=== PATIENT | male | born 1955 | race African-American/Black ===

== ENCOUNTER 2024-11-15 08:57 | Inpatient (IN) | payer MEDICARE ==
[~2024-11-15] VITALS: Ht 175.3 cm; Wt 99.8 kg
[~2024-11-15 08:57] MED LIST: AMLODIPINE BESYL5 MG PO; ATORVASTATIN CA20 MG PO; BREZTRI AEROS10.7 GM INH; DICYCLOMINE HCL20 MG PO; FLOMAX0.4 MG PO; LISINOPRIL-HCT1 EACH PO; OMEPRAZOLE40 MG PO; VENTOLIN HFA18 GM INH
[2024-11-15] MEDS: LACTATED RINGER'S 1,000 ML ONE (09:33)
[2024-11-15] MEDS: PIPERACILLIN/TAZOBACTAM 3.375 GM VIAL ONE (09:34)
[2024-11-15] MEDS: GENTAMICIN 80MG/NS 100 ML 200 ML IV ONE (09:34)
[2024-11-15] MEDS: CLINDAMYCIN 600MG / 50ML 50 ML IV ONE (09:35)
[2024-11-15 09:53] LABS: BASOPHILS % 0.9 % (0.0-1.0); EOSINOPHILS # (AUTO) 0.3 (0.0-0.4); HEMATOCRIT 44.5 % (38.2-49.6); HEMOGLOBIN 13.9 g/dL (14.0-18.0); LYMPHOCYTES # (AUTO) 1.6 (1.0-3.2); LYMPHOCYTES % 35.5 % (18.0-39.1); MEAN CORPUSCULAR HEMOGLOBIN 27.2 pg (28-32); MEAN CORPUSCULAR HGB CONC 31.2 g/dL (31-35); MEAN CORPUSCULAR VOLUME 87.1 fL (81-99); MONOCYTES # (AUTO) 0.6 (0.2-0.8); MONOCYTES % 12.9 % (4.4-11.3); NEUTROPHILS % 44.5 % (38.7-80.0); PLATELET COUNT 199 x10e3/uL (140-360); RED BLOOD COUNT 5.11 x10e6/uL (4.3-5.7); RED CELL DISTRIBUTION WIDTH 15.6 % (11.7-14.4); WHITE BLOOD COUNT 4.51 x10e3/uL (4.8-10.8)
[2024-11-15] MEDS ORDERED: DEXAMETHASONE SOD PHOS INJ 4 MG/ML SDV ONE (10:14)
[2024-11-15] MEDS ORDERED: PROPOFOL IV EMULSION 10 MG/ML 20 ML VIAL ONE ×3 (10:14→14:08)
[2024-11-15] MEDS ORDERED: SEVOFLURANE INHAL SOLN 250 ML PEN BTL ONE (10:14)
[2024-11-15] MEDS ORDERED: ACETAMINOPHEN 1000 MG/100 ML 100 ML IV ONE (10:14)
[2024-11-15] MEDS ORDERED: LIDOCAINE HCL 2% LOCAL INJ 5 ML SDV VIAL INJ ONE (10:14)
[2024-11-15] MEDS ORDERED: ONDANSETRON HCL INJ 2MG/ML 2ML 2 MG/ML VIAL ONE (10:14)
[2024-11-15] MEDS ORDERED: FENTANYL CITRATE/PF 100MCG/2 ML INJ ONE ×3 (10:16→15:17)
[2024-11-15 10:23] LABS: ANION GAP 13.9 mmol/L (8-16); CALCIUM 9.5 mg/dL (8.4-10.2); CREATININE, SERUM 1.02 mg/dL (0.72-1.25); POTASSIUM 3.9 mmol/L (3.5-5.1)
[2024-11-15] MEDS ORDERED: EPHEDRINE SULFATE INJ 50 MG/ML VIAL ONE (12:43)
[2024-11-15] MEDS ORDERED: PHENYLEPHRINE HCL 1% 10 MG/ML VIAL ONE (14:28)
[2024-11-15] MEDS ORDERED: DIPHENHYDRAMINE HCL 25 MG CAP PO PRN (16:30)
[2024-11-15 17:14] LABS: BASOPHILS % 0.3 % (0.0-1.0); EOSINOPHILS # (AUTO) 0.1 (0.0-0.4); EOSINOPHILS % 1.1 % (0.0-6.0); HEMATOCRIT 44.3 % (38.2-49.6); HEMOGLOBIN 13.2 g/dL (14.0-18.0); LYMPHOCYTES # (AUTO) 1.3 (1.0-3.2); LYMPHOCYTES % 19.2 % (18.0-39.1); MEAN CORPUSCULAR HEMOGLOBIN 26.6 pg (28-32); MEAN CORPUSCULAR HGB CONC 29.8 g/dL (31-35); MEAN CORPUSCULAR VOLUME 89.3 fL (81-99); MONOCYTES # (AUTO) 0.2 (0.2-0.8); NEUTROPHILS # (AUTO) 5.1 (2.1-6.9); NEUTROPHILS % 76.1 % (38.7-80.0); PLATELET COUNT 192 x10e3/uL (140-360); RED BLOOD COUNT 4.96 x10e6/uL (4.3-5.7); RED CELL DISTRIBUTION WIDTH 15.7 % (11.7-14.4); WHITE BLOOD COUNT 6.63 x10e3/uL (4.8-10.8)
[2024-11-15 17:35] LABS: ANION GAP 14.4 mmol/L (8-16); CALCIUM 8.9 mg/dL (8.4-10.2); CREATININE, SERUM 1.37 mg/dL (0.72-1.25); POTASSIUM 4.4 mmol/L (3.5-5.1)
[2024-11-15 20:00] VITALS: BP 139/79; PULSE 80; RESP 18; TEMP 97.5; O2SAT 98
[2024-11-15] MEDS: ALBUTEROL/IPRATROPIUM 3 ML NEB ONE (21:35)
[2024-11-15] MEDS: ACETAMINOPHEN 1000 MG/100 ML IV PRN (22:20)
[2024-11-15] MEDS: Morphine 2mg Syringe 2 MG/ML SYR IV PRN (22:20)
[2024-11-15] MEDS: SENNA-S TABLET PO SCH (22:21)
[2024-11-15] MEDS: ONDANSETRON HCL INJ 2MG/ML 2ML 2 MG/ML VIAL IV PRN (22:22)
[2024-11-15] MEDS: PHENAZOPYRIDINE HCL 100 MG TAB PO PRN (22:27)
[2024-11-15] MEDS: LEVOFLOXACIN 500MG/D5W 100ML 100 ML IV SCH (22:28)
[2024-11-15] MEDS: SODIUM CHLORIDE 0.9% 1000ML 1,000 ML IV SCH (22:28)
[2024-11-15 22:30] VITALS: PULSE 80; RESP 18; O2SAT 98
[2024-11-16] VITALS (9 sets, daily range): BP systolic 141–167; BP diastolic 72–96; PULSE 68–99; RESP 16–20; TEMP 97.5–99.7; O2SAT 89–100
[2024-11-16 06:38] LABS: BASOPHILS % 0.1 % (0.0-1.0); EOSINOPHILS % 0.1 % (0.0-6.0); HEMATOCRIT 39.8 % (38.2-49.6); LYMPHOCYTES # (AUTO) 1.1 (1.0-3.2); LYMPHOCYTES % 10.4 % (18.0-39.1); MEAN CORPUSCULAR HEMOGLOBIN 26.4 pg (28-32); MEAN CORPUSCULAR HGB CONC 30.2 g/dL (31-35); MEAN CORPUSCULAR VOLUME 87.7 fL (81-99); MONOCYTES # (AUTO) 1.1 (0.2-0.8); MONOCYTES % 10.5 % (4.4-11.3); NEUTROPHILS # (AUTO) 8.1 (2.1-6.9); NEUTROPHILS % 78.5 % (38.7-80.0); PLATELET COUNT 180 x10e3/uL (140-360); RED BLOOD COUNT 4.54 x10e6/uL (4.3-5.7); RED CELL DISTRIBUTION WIDTH 15.5 % (11.7-14.4)
[2024-11-16 07:13] LABS: ANION GAP 12.7 mmol/L (8-16); CALCIUM 8.5 mg/dL (8.4-10.2); CREATININE, SERUM 1.07 mg/dL (0.72-1.25); POTASSIUM 4.7 mmol/L (3.5-5.1)
[2024-11-16] MEDS ORDERED: HYDRALAZINE HCL 20 MG/ML VIAL IV PRN (08:45)
[2024-11-16] MEDS ORDERED: ONDANSETRON HCL INJ 2MG/ML 2ML 2 MG/ML VIAL IV PRN (08:45)
[2024-11-16] MEDS ORDERED: ACETAMINOPHEN 325 MG TAB PO PRN (08:45)
[2024-11-16] MEDS ORDERED: ALBUTEROL/IPRATROPIUM 3 ML NEB NEB PRN (08:45)
[2024-11-16] MEDS ORDERED: ALBUTEROL 90 MCG/ACT INHALER INH PRN (08:45)
[2024-11-16] MEDS: TAMSULOSIN HCL 0.4 MG CAP PO SCH (09:56)
[2024-11-16] MEDS: AMLODIPINE BESYLATE 5 MG TAB PO SCH (09:56)
[2024-11-16] MEDS: DICYCLOMINE HCL 20 MG TAB PO SCH (09:56)
[2024-11-16] MEDS: LISINOPRIL 10 MG TAB PO SCH (09:57)
[2024-11-16] MEDS: LEVOFLOXACIN 500MG/D5W 100ML 100 ML IV SCH (21:01)
[2024-11-16] MEDS: ATORVASTATIN 20 MG TAB PO SCH (21:01)
[2024-11-17] VITALS (9 sets, daily range): BP systolic 130–153; BP diastolic 75–90; PULSE 81–90; RESP 16–18; TEMP 97.6–99; O2SAT 98–100
[2024-11-17] MEDS: PANTOPRAZOLE SODIUM 20 MG TABLET.DR PO SCH (06:08)
[2024-11-17 07:54] LABS: BASOPHILS % 0.3 % (0.0-1.0); EOSINOPHILS # (AUTO) 0.2 (0.0-0.4); EOSINOPHILS % 1.6 % (0.0-6.0); HEMATOCRIT 36.3 % (38.2-49.6); HEMOGLOBIN 11.6 g/dL (14.0-18.0); LYMPHOCYTES % 21.8 % (18.0-39.1); MEAN CORPUSCULAR HEMOGLOBIN 26.7 pg (28-32); MEAN CORPUSCULAR VOLUME 83.4 fL (81-99); MONOCYTES # (AUTO) 1.2 (0.2-0.8); MONOCYTES % 12.9 % (4.4-11.3); NEUTROPHILS # (AUTO) 5.7 (2.1-6.9); PLATELET COUNT 194 x10e3/uL (140-360); RED BLOOD COUNT 4.35 x10e6/uL (4.3-5.7); RED CELL DISTRIBUTION WIDTH 16.1 % (11.7-14.4); WHITE BLOOD COUNT 9.13 x10e3/uL (4.8-10.8)
[2024-11-17 08:25] LABS: CALCIUM 8.6 mg/dL (8.4-10.2); CREATININE, SERUM 0.93 mg/dL (0.72-1.25)
[2024-11-17] MEDS: ACETAMINOPHEN/CODEINE 300MG - 30MG TAB PO PRN (14:59)
[2024-11-18] VITALS (11 sets, daily range): BP systolic 123–156; BP diastolic 65–89; PULSE 80–92; RESP 16–20; TEMP 97.7–98.6; O2SAT 94–100
[2024-11-18 06:08] LABS: BASOPHILS # (AUTO) 0.1 (0.0-0.1); BASOPHILS % 0.7 % (0.0-1.0); EOSINOPHILS # (AUTO) 0.2 (0.0-0.4); EOSINOPHILS % 3.1 % (0.0-6.0); HEMATOCRIT 34.5 % (38.2-49.6); HEMOGLOBIN 11.2 g/dL (14.0-18.0); LYMPHOCYTES # (AUTO) 1.9 (1.0-3.2); LYMPHOCYTES % 25.6 % (18.0-39.1); MEAN CORPUSCULAR HEMOGLOBIN 26.8 pg (28-32); MEAN CORPUSCULAR HGB CONC 32.5 g/dL (31-35); MEAN CORPUSCULAR VOLUME 82.5 fL (81-99); NEUTROPHILS # (AUTO) 4.2 (2.1-6.9); NEUTROPHILS % 55.9 % (38.7-80.0); PLATELET COUNT 192 x10e3/uL (140-360); RED BLOOD COUNT 4.18 x10e6/uL (4.3-5.7); RED CELL DISTRIBUTION WIDTH 15.9 % (11.7-14.4); WHITE BLOOD COUNT 7.45 x10e3/uL (4.8-10.8)
[2024-11-18 06:27] LABS: ANION GAP 13.1 mmol/L (8-16); CREATININE, SERUM 1.07 mg/dL (0.72-1.25); POTASSIUM 4.1 mmol/L (3.5-5.1)
[2024-11-19] VITALS (9 sets, daily range): BP systolic 124–146; BP diastolic 70–81; PULSE 81–94; RESP 18–20; TEMP 97.6–98.3; O2SAT 94–100
[2024-11-19 05:05] LABS: BASOPHILS % 0.6 % (0.0-1.0); EOSINOPHILS # (AUTO) 0.4 (0.0-0.4); EOSINOPHILS % 5.5 % (0.0-6.0); HEMATOCRIT 37.2 % (38.2-49.6); HEMOGLOBIN 12.1 g/dL (14.0-18.0); LYMPHOCYTES # (AUTO) 1.8 (1.0-3.2); MEAN CORPUSCULAR HEMOGLOBIN 26.8 pg (28-32); MEAN CORPUSCULAR HGB CONC 32.5 g/dL (31-35); MEAN CORPUSCULAR VOLUME 82.3 fL (81-99); MONOCYTES # (AUTO) 0.8 (0.2-0.8); MONOCYTES % 13.1 % (4.4-11.3); NEUTROPHILS # (AUTO) 3.3 (2.1-6.9); NEUTROPHILS % 52.2 % (38.7-80.0); PLATELET COUNT 215 x10e3/uL (140-360); RED BLOOD COUNT 4.52 x10e6/uL (4.3-5.7); RED CELL DISTRIBUTION WIDTH 15.5 % (11.7-14.4)
[2024-11-19 05:40] LABS: ANION GAP 14.1 mmol/L (8-16); CALCIUM 8.9 mg/dL (8.4-10.2); CREATININE, SERUM 1.13 mg/dL (0.72-1.25); POTASSIUM 4.1 mmol/L (3.5-5.1)
[2024-11-19] MEDS: ACETAMINOPHEN/CODEINE 300MG - 30MG TAB ONE (08:37)
[2024-11-19] MEDS: POTASSIUM CHLORIDE 20 MEQ TAB CR PO ONE (10:50)
[2024-11-19] MEDS: FUROSEMIDE INJ 10 MG/ML 4 ML VIAL IV ONE (10:50)
[2024-11-20] VITALS (7 sets, daily range): BP systolic 118–136; BP diastolic 64–91; PULSE 80–91; RESP 18–20; TEMP 97.5–98.6; O2SAT 95–98
[2024-11-20] MEDS: FUROSEMIDE INJ 10 MG/ML 2 ML VIAL IV ONE (11:43)
[2024-11-21 00:35] VITALS: BP 120/70; PULSE 90; RESP 19; TEMP 97.9; O2SAT 97
[2024-11-21 04:44] VITALS: BP 137/80; PULSE 80; RESP 16; TEMP 98.4; O2SAT 95
[2024-11-21 05:42] LABS: BASOPHILS # (AUTO) 0.1 (0.0-0.1); EOSINOPHILS # (AUTO) 0.4 (0.0-0.4); EOSINOPHILS % 6.7 % (0.0-6.0); HEMATOCRIT 36.2 % (38.2-49.6); HEMOGLOBIN 11.6 g/dL (14.0-18.0); LYMPHOCYTES # (AUTO) 1.9 (1.0-3.2); LYMPHOCYTES % 31.5 % (18.0-39.1); MEAN CORPUSCULAR HEMOGLOBIN 26.5 pg (28-32); MEAN CORPUSCULAR VOLUME 82.8 fL (81-99); MONOCYTES # (AUTO) 0.8 (0.2-0.8); MONOCYTES % 13.6 % (4.4-11.3); NEUTROPHILS # (AUTO) 2.8 (2.1-6.9); NEUTROPHILS % 46.4 % (38.7-80.0); PLATELET COUNT 249 x10e3/uL (140-360); RED BLOOD COUNT 4.37 x10e6/uL (4.3-5.7); RED CELL DISTRIBUTION WIDTH 15.3 % (11.7-14.4); WHITE BLOOD COUNT 6.12 x10e3/uL (4.8-10.8)
[2024-11-21 06:08] LABS: ANION GAP 14.1 mmol/L (8-16); CREATININE, SERUM 1.08 mg/dL (0.72-1.25); POTASSIUM 4.1 mmol/L (3.5-5.1)
[2024-11-21 06:38] VITALS: PULSE 89; RESP 18; O2SAT 98
[2024-11-21 07:56] VITALS: BP 115/78; PULSE 80; RESP 19; TEMP 97.9; O2SAT 97
[2024-11-21 08:00] VITALS: BP 115/78; PULSE 80; RESP 19; TEMP 97.9; O2SAT 97
[2024-11-21 11:00] VITALS: BP 121/70; PULSE 96; RESP 20; TEMP 97.7; O2SAT 97
== END 2024-11-21 11:41 | disposition home or self-care (01) | DRG 674 ==
LOC: OR 08:57 → MED/SURG 17:08
PROVIDERS: ADMIT Internal Medicine; ATTEND Internal Medicine
PROC: 0TJB8ZZ Inspection of Bladder, Via Natural or Artificial Opening Endoscopic (ICD-10-PCS; 2024-11-15)
PROC: 0VPS0JZ Removal of Synthetic Substitute from Penis, Open Approach (ICD-10-PCS; principal; 2024-11-15 12:32)
PROC: 0VUS0JZ Supplement Penis with Synthetic Substitute, Open Approach (ICD-10-PCS; 2024-11-15 12:32)
DX: T83.420A Displacement of implanted penile prosthesis, initial encounter (principal); N40.1 Benign prostatic hyperplasia with lower urinary tract symptoms; N13.8 Other obstructive and reflux uropathy; I10 Essential (primary) hypertension; Y83.1 Surgical operation with implant of artificial internal device as the cause of abnormal reaction of the patient, or of later complication, without mention of misadventure at the time of the procedure; R31.9 Hematuria, unspecified; R60.0 Localized edema; N52.8 Other male erectile dysfunction; K21.9 Gastro-esophageal reflux disease without esophagitis; J44.9 Chronic obstructive pulmonary disease, unspecified; E78.5 Hyperlipidemia, unspecified; M19.90 Unspecified osteoarthritis, unspecified site; Z96.0 Presence of urogenital implants; E66.9 Obesity, unspecified; Z68.32 Body mass index [BMI] 32.0-32.9, adult; Z79.51 Long term (current) use of inhaled steroids; Z85.46 Personal history of malignant neoplasm of prostate
CPT/HCPCS: 36415; 71046; 80048; 83735; 85025; 88300; 93005; 94799; C1813; J0690; J1100; J1580; J1940; J1956; J2003; J2270; J2371; J2405; J2543; J7030